=== PATIENT | male | born 1940 | race Caucasian/White ===

== ENCOUNTER 2021-04-17 06:37 | Day surgery (SDC) | payer MEDICARE ==
[2021-04-17] VITALS (9 sets, daily range): BP systolic 100–151; BP diastolic 62–77
[~2021-04-17] VITALS: Ht 180.3 cm; Wt 90.0 kg
[~2021-04-17 06:37] MED LIST: ADV50250 IH; ALBU18HF2 IH; ASPI-1071 PO; CARV3.12 PO; LISI20TA28 PO; NITR0.4T48 SL; PANT40TA39 PO; ROSU10TA2 PO; TICA90TA2 PO
[2021-04-17] MEDS ORDERED: cefazolin/dext.iso 2gm/50ml 50 ML IV ONE (07:10)
[2021-04-17] MEDS ORDERED: normal saline 1000ml 1,000 ML IV SCH (07:10)
[2021-04-17] MEDS ORDERED: LEVO25TA7 PO (07:30)
[2021-04-17] MEDS ORDERED: POTASSIUM PO (07:30)
[2021-04-17] MEDS ORDERED: EZET10TA48 PO (07:30)
[2021-04-17] MEDS ORDERED: CARV3.122 PO (07:30)
[2021-04-17] MEDS ORDERED: LEVE500T PO (07:30)
[2021-04-17] MEDS ORDERED: METF-438 PO (07:30)
[2021-04-17] MEDS ORDERED: FURO20TA4 PO (07:30)
[2021-04-17] MEDS ORDERED: ASPI81TA52 PO (07:30)
[2021-04-17] MEDS ORDERED: LOSA25TA41 PO (07:30)
[2021-04-17] MEDS ORDERED: vancomycin 1,000mg inj ONE (08:29)
[2021-04-17] MEDS ORDERED: midazolam 1 mg/ML 2ml injection ONE ×5 (08:29→12:43)
[2021-04-17] MEDS ORDERED: iohexol 350 MG/ML 50ML vial IV ONE ×2 (08:29→11:47)
[2021-04-17] MEDS ORDERED: fentaNYL/PF 50MCG/1 ML 2ML syringe ONE ×2 (08:29→12:43)
[2021-04-17 08:41] LABS: BASOPHILS % (AUTO) 0.4 % (0-1); EOSINOPHILS # (AUTO) 0.1 X10'3 (0-0.9); EOSINOPHILS % (AUTO) 1.8 % (0-6); HEMATOCRIT 37.8 % (42.0-52.0); HEMOGLOBIN 12.4 g/dl (14.0-17.9); LYMPHOCYTES % (AUTO) 19.5 % (21-51); MEAN CORPUSCULAR HEMOGLOBIN 29.8 PG (27.0-31.0); MEAN CORPUSCULAR HGB CONC 32.8 g/dL (33.0-36.5); MEAN CORPUSCULAR VOLUME 90.9 FL (78-98); MEAN PLATELET VOLUME 8.4 FL (7.4-10.4); MONOCYTES # (AUTO) 0.6 X10'3 (0-0.9); MONOCYTES % (AUTO) 11.7 % (2-12); NEUTROPHILS # (AUTO) 3.5 X10'3 (1.8-7.7); NEUTROPHILS % (AUTO) 66.6 % (42-75); PLATELET COUNT 254 X10'3 (140-440); RED BLOOD COUNT 4.16 X10'6 (4.70-6.10); RED CELL DISTRIBUTION WIDTH 17.5 % (11.5-14.5); WHITE BLOOD COUNT 5.2 X10'3 (4.5-11.0)
[2021-04-17] MEDS ORDERED: LIDOcaine 1% w/EPI 1:100,000 30ml vial (MDV) ONE (08:49)
[2021-04-17 09:14] LABS: ANION GAP 10 (8-16); BLOOD UREA NITROGEN 23 MG/DL (7-18); BUN/CREATININE RATIO 21.3 (5.4-32.0); CALCIUM 8.7 MG/DL (8.5-10.1); CHLORIDE 102 MMOL/L (99-107); CREATININE 1.08 MG/DL (0.60-1.10); GLUCOSE 126 MG/DL (70-104); SODIUM 142 MMOL/L (135-145); TOTAL CARBON DIOXIDE 30.2 MMOL/L (24-32); eGFR 66 ML/MIN
[2021-04-17 09:15] LABS: ALBUMIN 3.1 G/DL (3.4-5.0)
[2021-04-17] MEDS ORDERED: magnesium 2GM in 50ml NS 50 ML IV ONE (09:20)
--- NOTE | 2021-04-17 09:20 | NUR ---
dr. carver notifies of Mg 1.0. order received for Mg 2gm IV
[2021-04-17] MEDS ORDERED: LIDOcaine 2% 10ml TOPICAL JELLY (Urojet) ONE (12:03)
[2021-04-17] MEDS ORDERED: HYDROcodone/acetaminophen 10/325mg tab PO PRN (13:45)
[2021-04-17] MEDS ORDERED: HYDROcodone/acetaminophen 5mg/325mg tablet PO PRN (13:45)
== END 2021-04-17 17:50 | disposition home or self-care (01) ==
LOC: SSTAY O 06:37
PROVIDERS: ATTEND Internal Medicine Cardiovascular Disease
DX: I44.7 Left bundle-branch block, unspecified (principal); I50.22 Chronic systolic (congestive) heart failure; I25.5 Ischemic cardiomyopathy; I10 Essential (primary) hypertension; E78.5 Hyperlipidemia, unspecified; E11.9 Type 2 diabetes mellitus without complications; J44.9 Chronic obstructive pulmonary disease, unspecified; G47.30 Sleep apnea, unspecified; G40.909 Epilepsy, unspecified, not intractable, without status epilepticus; Z79.899 Other long term (current) drug therapy
CPT/HCPCS: 33225; 33249; 36415; 71045; 80048; 83735; 85025; 85610; 93005; 99152; 99153; C1769; C1882; C1887; C1894; C1895; C1900; J2250; J3010; J3370; J3475; J3490; Q9967; A4565; A4620; A6258; A6449